=== PATIENT | male | born 1945 | race Caucasian/White ===

== ENCOUNTER 2018-09-16 13:12 | Emergency (ER) | payer MEDICARE ==
[~2018-09-16] VITALS: Ht 165.1 cm; Wt 74.8 kg
--- NOTE | 2018-09-16 13:17 | NUR ---
PT BIB [facility], C/O R LOWER BACK PAIN X 5 DAYS. PER PT REPORT, PAIN STARTED 5 DAYS AGO AFTER PT WAS WORKING IN HIS [place]ARD[place], PAIN PROVOKED BY MOVEMENT, RADIATES DOWN THE R LEG, 04/06, CONSTANT. PT IS HYPERTENSIVE, 202/113, REPORTS THAT HE HAS NOT BEEN TAKING HIS BP MEDS X 5 DAYS AGO BECAUSE THE MEDS WERE KEPT DOWNSTAIRS AT HIS RESIDENCE. ER AWARE. PT DENIES C/P, SOB, N/V/D, DIZZINESS, HEADACHE.
[2018-09-16] MEDS ORDERED: LORA0.5T PO (13:28)
[2018-09-16] MEDS ORDERED: HYDR-4209 PO (13:28)
[2018-09-16] MEDS ORDERED: OMEG1CAP55 PO (13:28)
[2018-09-16] MEDS ORDERED: METOPROLOL PO (13:28)
[2018-09-16] MEDS ORDERED: BACL10TA PO (13:28)
[2018-09-16] MEDS ORDERED: IBUP-1957 PO (13:28)
--- NOTE | 2018-09-16 13:30 | NUR ---
HARESH BOWLES AT BEDSIDE FOR MSE.
[2018-09-16] MEDS ORDERED: MORPHINE SULFATE 2 MG/1 ML DISP.SYRIN IV ONE ×2 (13:45→15:30)
[2018-09-16] MEDS ORDERED: LISINOPRIL 10 MG TABLET PO ONE (13:45)
[2018-09-16] MEDS ORDERED: IV NORMAL SALINE 1000 ML BAG IV ONE (13:45)
[2018-09-16] MEDS ORDERED: ONDANSETRON 4 MG/2 ML VIAL IV ONE (13:45)
[2018-09-16] MEDS ORDERED: LISINOPRIL 10 MG TABLET ONE (13:50)
[2018-09-16] MEDS ORDERED: MORPHINE SULFATE 4 MG/1 ML DISP.SYRIN ONE (13:51)
[2018-09-16] MEDS ORDERED: ONDANSETRON 4 MG/2 ML VIAL ONE (13:51)
--- NOTE | 2018-09-16 14:07 | NUR ---
PT REFUSED LUMBAR XRAY - ER AWARE.
--- NOTE | 2018-09-16 15:12 | NUR ---
US TECH AT BEDSIDE.
[2018-09-16] MEDS ORDERED: MORPHINE SULFATE 2 MG/1 ML DISP.SYRIN ONE (15:29)
[2018-09-16] MEDS ORDERED: HYDROCODONE/APAP 5-325MG TABLET PO ONE (18:00)
[2018-09-16] MEDS ORDERED: HYDROCODONE/APAP 5-325MG TABLET ONE (18:02)
--- NOTE | 2018-09-16 18:16 | NUR ---
Patient discharged to home in stable conditon. Written and verbal after care instructions given. Patient verbalizes understanding of instructions. ALL BELONGINGS W/ PT. PT SELF-AMBULATED W/O DIFFICULTY. 20G IV ACCESS IN R WRIST REMOVED PRIOR TO D/C - INNER CANNULA INTACT. PT WILL BE DRIVEN HOME BY NEPHEW IN PRIVATE VEHICLE.
[2018-09-16 18:17] VITALS: BP 188/96
== END 2018-09-16 18:18 | disposition home or self-care (01) ==
LOC: ER 13:12
DX: M54.41 Lumbago with sciatica, right side (principal); Z79.891 Long term (current) use of opiate analgesic; Z79.1 Long term (current) use of non-steroidal anti-inflammatories (NSAID); Z79.899 Other long term (current) drug therapy
CPT/HCPCS: 72110; 93971; 96374; 96376; 99284; J2270 ×2; J2405; A4663; J7030